=== PATIENT | female | born 1980 | race Caucasian/White ===

== ENCOUNTER 2017-08-04 10:54 | Emergency (ER) | payer MEDICAID ==
[~2017-08-04] VITALS: Ht 165.1 cm; Wt 79.0 kg
[~2017-08-04 10:54] MED LIST: NO HOME MEDS; OMEP20TA5 PO; SUCR1ORA2 PO
[2017-08-04 10:55] VITALS: BP 140/102
[2017-08-04] MEDS ORDERED: TOBRAMYCIN 0.3% LEFTEYE ONE (13:55)
== END 2017-08-04 17:48 | disposition home or self-care (01) ==
LOC: ER 10:54
DX: H00.015 Hordeolum externum left lower eyelid (principal); F17.200 Nicotine dependence, unspecified, uncomplicated; Z79.899 Other long term (current) drug therapy
CPT/HCPCS: 99282

== ENCOUNTER → 2017-08-17 | Emergency (ER) | payer MEDICAID ==
[~2017-08-17] VITALS: Ht 165.1 cm; Wt 81.8 kg
[~2017-08-17] MED LIST changes: +BUPIVAcaine/PF 2.5 mg/ml (0.25%) 30ml vial IJ ONE; +CEPH500C5 PO; +HYDR-565 PO; +SULF1TAB49 PO; +TETanus/Pertussis (Acell)/Diphther VAC/PF (Tdap-Adult) 0.5ml syringe IM ONE
[2017-08-17 18:32] VITALS: BP 137/78
[2017-08-17 18:39] LABS: PREOP URINE HCG NEGATIVE (NEGATIVE)
== END | disposition home or self-care (01) ==
LOC: ER 17:03
DX: N76.4 Abscess of vulva (principal)
CPT/HCPCS: 56405; 81025; 90471; 90715; 99284; A6266; A6449; J3490; 99283

== ENCOUNTER 2017-11-17 23:34 | Emergency (ER) | payer MEDICAID ==
[~2017-11-17] VITALS: Ht 165.1 cm; Wt 77.2 kg
[~2017-11-17 23:34] MED LIST changes: -BUPIVAcaine/PF 2.5 mg/ml (0.25%) 30ml vial IJ ONE; -HYDR-565 PO; -SULF1TAB49 PO; -TETanus/Pertussis (Acell)/Diphther VAC/PF (Tdap-Adult) 0.5ml syringe IM ONE
[2017-11-17 23:38] VITALS: BP 155/99
== END 2017-11-18 00:46 | disposition left against medical advice (07) ==
LOC: ER 23:35
DX: L02.91 Cutaneous abscess, unspecified (principal); Z53.21 Procedure and treatment not carried out due to patient leaving prior to being seen by health care provider

== ENCOUNTER 2018-03-16 20:39 | Emergency (ER) | payer MEDICAID ==
[~2018-03-16] VITALS: Ht 165.1 cm; Wt 80.0 kg
[2018-03-16 20:47] VITALS: BP 134/85
[2018-03-16] MEDS ORDERED: SULF1TAB49 PO (21:06)
== END 2018-03-16 21:14 | disposition home or self-care (01) ==
LOC: ER 20:40
DX: L03.114 Cellulitis of left upper limb (principal); Z79.899 Other long term (current) drug therapy
CPT/HCPCS: 99283

== ENCOUNTER 2018-03-19 10:10 | Emergency (ER) | payer MEDICAID ==
[~2018-03-19] VITALS: Ht 165.1 cm; Wt 81.8 kg
[~2018-03-19 10:10] MED LIST changes: +SULF1TAB49 PO
[2018-03-19] MEDS ORDERED: vancomycin/NS 1 GM ADD-VANTAGE 250 ML IV ONE (11:55)
[2018-03-19] MEDS ORDERED: CEPH500C5 PO (12:02)
[2018-03-19 13:47] VITALS: BP 136/79
[2018-03-20] MEDS ORDERED: DOXY100C43 PO (11:44)
[2018-03-20] MEDS ORDERED: ONDA8TAB9 PO (11:44)
== END 2018-03-19 14:48 | disposition home or self-care (01) ==
LOC: ER 10:11
DX: L03.114 Cellulitis of left upper limb (principal); F17.200 Nicotine dependence, unspecified, uncomplicated
CPT/HCPCS: 96365; 96366; 99285; A6222; A6255; A6449; J3370

== ENCOUNTER 2018-03-20 10:13 | Emergency (ER) | payer MEDICAID ==
[~2018-03-20] VITALS: Ht 165.1 cm; Wt 71.0 kg
[2018-03-20] MEDS ORDERED: ondansetron 4mg rapidly disintigrating tab PO ONE (10:55)
[2018-03-20] MEDS ORDERED: cephalexin 500mg capsule PO ONE (10:55)
[2018-03-20] MEDS ORDERED: doxycycline hyclate 100mg tablet.DR PO ONE (10:55)
[2018-03-20] MEDS ORDERED: DOXYCYCLINE 100MG CAPSULE PO ONE (11:00)
[2018-03-20] MEDS ORDERED: ONDA8TAB9 PO (11:44)
[2018-03-20] MEDS ORDERED: DOXY100C43 PO (11:44)
[2018-03-20 12:22] VITALS: BP 129/89
== END 2018-03-20 12:24 | disposition home or self-care (01) ==
LOC: ER 10:14
DX: L02.512 Cutaneous abscess of left hand (principal)
CPT/HCPCS: 10060; 99284; A6255; A6449

== ENCOUNTER 2018-11-01 12:15 | Emergency (ER) | payer MEDICAID ==
[~2018-11-01] VITALS: Ht 165.1 cm; Wt 87.0 kg
[~2018-11-01 12:15] MED LIST changes: +ONDA8TAB9 PO; -SULF1TAB49 PO
[2018-11-01] MEDS ORDERED: dexamethasone sod phosphate 10mg/ml inj IV STA (12:46)
[2018-11-01] MEDS ORDERED: CefTRIAXone/D5W-Rocephin 1gm 50 ML IV ONE (12:50)
[2018-11-01] MEDS ORDERED: normal saline 1000ML IV soln IV ONE (12:50)
[2018-11-01 13:46] LABS: BASOPHILS % (AUTO) 0.3 % (0-1); EOSINOPHILS # (AUTO) 0.1 X10'3 (0-0.9); EOSINOPHILS % (AUTO) 1.3 % (0-6); HEMATOCRIT 36.9 % (35.0-45.0); HEMOGLOBIN 12.7 g/dl (12.0-16.0); LYMPHOCYTES # (AUTO) 1.2 X10'3 (1.1-4.8); MEAN CORPUSCULAR HEMOGLOBIN 31.2 PG (27.0-31.0); MEAN CORPUSCULAR HGB CONC 34.5 g/dL (33.0-36.5); MEAN CORPUSCULAR VOLUME 90.4 FL (78-98); MEAN PLATELET VOLUME 7.4 FL (7.4-10.4); MONOCYTES % (AUTO) 9.8 % (2-12); NEUTROPHILS # (AUTO) 7.9 X10'3 (1.8-7.7); NEUTROPHILS % (AUTO) 76.6 % (42-75); PLATELET COUNT 234 X10'3 (140-440); RED BLOOD COUNT 4.08 X10'6 (4.20-5.60); RED CELL DISTRIBUTION WIDTH 12.8 % (11.5-14.5); WHITE BLOOD COUNT 10.3 X10'3 (4.5-11.0)
[2018-11-01 13:55] LABS: ALANINE AMINOTRANSFERASE 27 U/L (12-78); ALBUMIN 3.1 G/DL (3.4-5.0); ALBUMIN/GLOBULIN RATIO 0.9 (1.1-1.5); ALKALINE PHOSPHATASE 55 IU/L (46-116); ANION GAP 7 (8-16); ASPARTATE AMINO TRANSFERASE 14 U/L (10-37); BILIRUBIN,TOTAL 0.3 MG/DL (0.1-1.0); BLOOD UREA NITROGEN 8 MG/DL (7-18); BUN/CREATININE RATIO 11.3 (6.6-38.0); CALCIUM 8.5 MG/DL (8.5-10.1); CHLORIDE 106 MMOL/L (99-107); CREATININE 0.71 MG/DL (0.40-0.90); GLUCOSE 82 MG/DL (70-104); POTASSIUM 3.4 MMOL/L (3.5-5.1); SODIUM 140 MMOL/L (135-145); TOTAL CARBON DIOXIDE 27.2 MMOL/L (24-32); TOTAL PROTEIN 6.6 G/DL (6.4-8.2); eGFR > 90 ML/MIN
[2018-11-01] MEDS ORDERED: iohexol 300mg/ml 100ml inj. ONE (13:59)
[2018-11-01] MEDS ORDERED: morphine 4 MG/ML inj SYRINge IV ONE (14:05)
[2018-11-01] MEDS ORDERED: TETanus/Pertussis (Acell)/Diphther VAC/PF (Tdap-Adult) 0.5ml syringe IM ONE (14:45)
[2018-11-01] MEDS ORDERED: LIDOcaine 1% 30ml preserv. free vial IJ ONE (14:45)
[2018-11-01] MEDS ORDERED: HYDR-4383 PO (14:47)
[2018-11-01] MEDS ORDERED: CEPH-571 PO (14:47)
[2018-11-01] MEDS ORDERED: METH4TAB3 PO (14:47)
[2018-11-01 15:43] VITALS: BP 131/46
== END 2018-11-01 16:07 | disposition home or self-care (01) ==
LOC: ER 12:16
DX: J36 Peritonsillar abscess (principal); F17.210 Nicotine dependence, cigarettes, uncomplicated
CPT/HCPCS: 36415; 42700; 70491; 80053; 85025; 90471; 90715; 96365; 96366; 96375; 99284; J0696; J1100; J2270; J3490; J7030; Q9967; 96361

== ENCOUNTER 2023-06-11 12:19 | Emergency (ER) | payer BC, MEDICAID ==
[~2023-06-11] VITALS: Ht 165.1 cm; Wt 100.3 kg
[~2023-06-11 12:19] MED LIST changes: +CEPH-571 PO; -CEPH500C5 PO; +HYDR-4383 PO; +METH4TAB3 PO; +OMEP20TA43 PO; -OMEP20TA5 PO
[2023-06-11 12:40] VITALS: BP 124/79; PULSE 72; TEMP 98.1; O2SAT 97
[2023-06-11 13:19] LABS: BILIRUBIN,URINE NEGATIVE (Neg); CLARITY,URINE SLIGHTLY CLOUDY (Clear); COLOR,URINE YELLOW (Yellow); GLUCOSE, URINE NEGATIVE (Neg); KETONES,URINE NEGATIVE (Neg); LEUKOCYTE ESTERASE ,URINE NEGATIVE (Neg); NITRITES, URINE NEGATIVE (Neg); OCCULT BLOOD,URINE TRACE-INTACT (Neg); PROTEIN,URINE NEGATIVE (Neg); UROBILINOGEN,URINE 0.2 E.U/dL (0.2-1.0)
[2023-06-11 13:22] LABS: UA COLLECTION TYPE CLN CATCH MIDSTREAM
[2023-06-11 13:29] LABS: BACTERIA,URINE 2+ /HPF (Neg); MUCUS STRANDS FEW /LPF (Neg); RBC,URINE 0-2 /HPF (0-2); SQUAMOUS EPITHELIAL CELL,UR MANY /LPF (FEW); WBC,URINE 0-4 /HPF (0-4)
[2023-06-11 13:36] VITALS: RESP 16
--- NOTE | 2023-06-11 13:40 | NUR ---
I have reviewed and agree with all interventions, assessments performed and documented by JOHNATHON Bolanos.
[2023-06-11 13:54] LABS: BASOPHILS % (AUTO) 0.5 % (0-1); EOSINOPHILS # (AUTO) 0.2 X10'3 (0-0.9); EOSINOPHILS % (AUTO) 2.9 % (0-6); HEMOGLOBIN 13.7 g/dl (12.0-16.0); LYMPHOCYTES % (AUTO) 24.6 % (21-51); MEAN CORPUSCULAR HEMOGLOBIN 31.1 PG (27.0-31.0); MEAN CORPUSCULAR HGB CONC 34.2 g/dL (33.0-36.5); MEAN CORPUSCULAR VOLUME 91.1 FL (78-98); MONOCYTES # (AUTO) 0.6 X10'3 (0-0.9); MONOCYTES % (AUTO) 6.8 % (2-12); NEUTROPHILS # (AUTO) 5.3 X10'3 (1.8-7.7); NEUTROPHILS % (AUTO) 65.2 % (42-75); PLATELET COUNT 281 X10'3 (140-440); RED BLOOD COUNT 4.39 X10'6 (4.20-5.60); RED CELL DISTRIBUTION WIDTH 12.4 % (11.5-14.5); WHITE BLOOD COUNT 8.2 X10'3 (4.5-11.0)
[2023-06-11 14:19] LABS: ALANINE AMINOTRANSFERASE 26 U/L (12-78); ALBUMIN 3.3 G/DL (3.4-5.0); ALKALINE PHOSPHATASE 49 IU/L (46-116); AMYLASE 50 U/L (25-115); ANION GAP 8 (8-16); ASPARTATE AMINO TRANSFERASE 17 U/L (10-37); BILIRUBIN,TOTAL 0.2 MG/DL (0.1-1.0); BLOOD UREA NITROGEN 12 MG/DL (7-18); BUN/CREATININE RATIO 14.8 (10.0-20.0); CALCIUM 8.6 MG/DL (8.5-10.1); CHLORIDE 104 MMOL/L (99-107); CREATININE 0.81 MG/DL (0.40-0.90); GLUCOSE 109 MG/DL (70-104); LIPASE 40 U/L (16-77); POTASSIUM 3.5 MMOL/L (3.5-5.1); SODIUM 136 MMOL/L (135-145); TOTAL CARBON DIOXIDE 23.6 MMOL/L (24-32); TOTAL PROTEIN 6.7 G/DL (6.4-8.2); eCRCL 80 ML/MIN; eGFR 77 ML/MIN
== END 2023-06-11 15:13 | disposition left against medical advice (07) ==
LOC: ER 12:20
DX: K64.9 Unspecified hemorrhoids (principal); Z53.21 Procedure and treatment not carried out due to patient leaving prior to being seen by health care provider
CPT/HCPCS: 36415; 80053; 81001; 82150; 83690; 85025; 99281